=== PATIENT | male | born 1955 | race Two or more races ===

== ENCOUNTER 2021-03-07 06:00 | Day surgery (SDC) | payer OTHER ==
[~2021-03-07 06:00] MED LIST: METFORMIN HCL500 M3 PO; ZESTRIL10 M1 PO
[2021-03-07] MEDS ORDERED: ULTRAM50 MG PO (11:32)
== END 2021-03-07 12:25 | disposition home or self-care (01) ==
LOC: CIR.AMB 06:00
PROVIDERS: ATTEND Surgery
DX: C20 Malignant neoplasm of rectum (principal)
CPT/HCPCS: 36561; C1751

== ENCOUNTER 2021-06-11 05:30 | Day surgery (SDC) | payer OTHER ==
[~2021-06-11 05:30] MED LIST changes: +ULTRAM50 MG PO
== END 2021-06-11 10:15 | disposition home or self-care (01) ==
LOC: AMB-ENDOS 05:30
PROVIDERS: ATTEND Surgery
DX: D12.8 Benign neoplasm of rectum (principal); Z20.822 Contact with and (suspected) exposure to COVID-19

== ENCOUNTER 2021-07-30 11:12 | Inpatient (IN) | payer OTHER ==
[~2021-07-30] VITALS: Ht 182.9 cm; Wt 126.1 kg
[2021-07-30] MEDS ORDERED: GLUMETZA1000 MG PO (12:59)
== END 2021-08-02 12:44 | disposition home or self-care (01) | DRG 334 ==
LOC: SURH 08-01 05:31 → O/R 08-01 05:31 → SURH 08-01 10:45
PROVIDERS: ADMIT Surgery; ATTEND Surgery
PROC: 0DBQ4ZZ Excision of Anus, Percutaneous Endoscopic Approach (ICD-10-PCS; 2021-08-01)
PROC: 3E0T3BZ Introduction of Anesthetic Agent into Peripheral Nerves and Plexi, Percutaneous Approach (ICD-10-PCS; 2021-08-01)
PROC: 0DTP0ZZ Resection of Rectum, Open Approach (ICD-10-PCS; principal; 2021-08-01 10:45)
DX: D12.8 Benign neoplasm of rectum (principal); Z20.822 Contact with and (suspected) exposure to COVID-19